=== PATIENT | male | born 1965 | race Caucasian/White ===

== ENCOUNTER 2020-11-11 06:51 | Day surgery (SDC) | payer BC ==
[2020-11-11] MEDS ORDERED: Midazolam 1 MG/ML 2 ML SDV ONE (07:22)
[2020-11-11] MEDS ORDERED: fentaNYL 100 MCG/2 ML SDV ONE (07:22)
[2020-11-11] MEDS ORDERED: Propofol 200 MG/20 ML SDV ONE (07:22)
[2020-11-11] MEDS ORDERED: Dextrose 5%-Lactated Ringers 1,000 ML IV SCH (07:45)
--- NOTE | 2020-11-17 10:01 | OR ---
DATE OF PROCEDURE: 11/11/2020 SURGEON: Ankur Dickinson MD PREOPERATIVE DIAGNOSIS: Abdominal pain associated with some thickened colon on CAT scan. POSTOPERATIVE DIAGNOSIS: Uncomplicated left colonic diverticulosis, otherwise, normal colonoscopic examination. OPERATIVE PROCEDURE: Colonoscopy. ANESTHESIA: IV sedation. INDICATION FOR PROCEDURE: This is a 54-year-old male referred for a colonoscopy. The patient was noted to have some abdominal pain and thickened colon on a CAT scan. Plan to proceed with colonoscopy with biopsies and polypectomy as indicated. Potential risks of the procedure including bleeding and perforation were discussed, and the patient wishes to proceed. DETAILS OF PROCEDURE: The patient was taken to the operating room and placed in the left lateral decubitus position. IV sedation was administered, after which the initial digital rectal exam was performed, was unremarkable. Colonoscope was then passed into the rectum with retroflexion revealing uncomplicated hemorrhoidal columns. Scope was then eventually passed to the level of the cecum. The prep was quite good and only small liquid stool was present. The patient had some uncomplicated left colonic diverticulosis, otherwise, the exam was normal. There did not appear to be areas of mucosal edema or colitis and no polyps or other signs of neoplasia. The findings on CT scan were probably likely related to underdistention of the colon at the time of the scan. The scope was then withdrawn and the above findings reconfirmed, and the procedure then concluded. With the absence of family history, the patient's next colonoscopy should be scheduled in 10 years. Ankur Dickinson MD /[id number]
== END 2020-11-11 09:55 | disposition home or self-care (01) ==
LOC: JP.SDS 06:51
PROVIDERS: ATTEND Surgery
DX: K57.30 Diverticulosis of large intestine without perforation or abscess without bleeding (principal); K64.9 Unspecified hemorrhoids; I10 Essential (primary) hypertension; G47.33 Obstructive sleep apnea (adult) (pediatric); K21.9 Gastro-esophageal reflux disease without esophagitis
CPT/HCPCS: 45378; J2250; J2704; J3010; J7121